=== PATIENT | female | born 1970 | race Two or more races ===

== ENCOUNTER 2018-10-30 12:19 | Outpatient (CLI) | payer OTHER ==
[~2018-10-30 12:19] MED LIST: INTEGRA PLUS C1 EACH PO; LEVAQUIN500 MG PO; TUSSIONEX PENNKI5 ML PO
== END 2018-10-30 18:39 | disposition home or self-care (01) ==
LOC: TOM 12:19
DX: K29.30 Chronic superficial gastritis without bleeding (principal); Z12.11 Encounter for screening for malignant neoplasm of colon

== ENCOUNTER 2019-07-23 13:45 | Outpatient (CLI) | payer OTHER | END 2019-07-23 13:57 | disposition home or self-care (01) | LOC: MAMO-SONO 13:45 | DX: Z12.31 Encounter for screening mammogram for malignant neoplasm of breast (principal); Z87.898 Personal history of other specified conditions; N60.11 Diffuse cystic mastopathy of right breast; N60.12 Diffuse cystic mastopathy of left breast; D25.0 Submucous leiomyoma of uterus ==

== ENCOUNTER 2022-06-23 09:39 | Outpatient (CLI) | payer OTHER | END 2022-06-23 09:42 | disposition home or self-care (01) | LOC: SONOGRAMA 09:39 | PROVIDERS: ATTEND Obstetrics & Gynecology | DX: R10.2 Pelvic and perineal pain (principal) ==

== ENCOUNTER 2022-07-03 10:28 | Outpatient (CLI) | payer OTHER | END 2022-07-03 10:29 | disposition home or self-care (01) | LOC: MAMO-SONO 10:28 | PROVIDERS: ATTEND Student in an Organized Health Care Education/Training Program | DX: Z12.31 Encounter for screening mammogram for malignant neoplasm of breast (principal); N60.11 Diffuse cystic mastopathy of right breast; N60.12 Diffuse cystic mastopathy of left breast ==

== ENCOUNTER 2023-08-27 08:57 | Outpatient (CLI) | payer OTHER | END 2023-08-27 09:14 | disposition home or self-care (01) | LOC: MAMO-SONO 08:57 | PROVIDERS: ATTEND Obstetrics & Gynecology | DX: N63.0 Unspecified lump in unspecified breast (principal); N64.59 Other signs and symptoms in breast; N64.9 Disorder of breast, unspecified; Z12.31 Encounter for screening mammogram for malignant neoplasm of breast; N94.0 Mittelschmerz; R10.2 Pelvic and perineal pain; N94.89 Other specified conditions associated with female genital organs and menstrual cycle; E04.1 Nontoxic single thyroid nodule ==

== ENCOUNTER 2024-09-11 11:26 | Outpatient (CLI) | payer OTHER | END 2024-09-11 11:37 | disposition home or self-care (01) | LOC: MAMO-SONO 11:26 | PROVIDERS: ATTEND Obstetrics & Gynecology | DX: N63 Unspecified lump in breast (principal); N64.59 Other signs and symptoms in breast; N64.9 Disorder of breast, unspecified; R10.2 Pelvic and perineal pain ==

== ENCOUNTER 2025-10-20 08:59 | Outpatient (CLI) | payer OTHER | END 2025-10-20 09:10 | disposition home or self-care (01) | LOC: MAMO-SONO 08:59 | PROVIDERS: ATTEND Obstetrics & Gynecology | DX: N63.0 Unspecified lump in unspecified breast (principal); N64.59 Other signs and symptoms in breast; N64.9 Disorder of breast, unspecified; N94.0 Mittelschmerz; R10.20 Pelvic and perineal pain unspecified side; N94.89 Other specified conditions associated with female genital organs and menstrual cycle ==